=== PATIENT | male | born 1975 | race Caucasian/White ===

== ENCOUNTER → 2021-05-08 | Outpatient (CLI) | payer BC ==
[2021-05-08 08:13] LABS: African American GFR (CKD) >90 (>60 ml/min/1.73 sqM); Blood Urea Nitrogen 21 mg/dL (9-20); Non-African American GFR(CKD) >90 (>60 ml/min/1.73 sqM)
--- NOTE | 2021-05-08 09:42 | CT ---
EXAMINATION TYPE: CT pelvis w con DATE OF EXAM: 05/08/2021 COMPARISON: HISTORY: bilateral pelvic pain CT DLP: 1347.8 mGycm Automated exposure control for dose reduction was used. CONTRAST: CT scan of the abdomen pelvis is performed with IV Contrast, patient injected with 100 mL of Isovue 3 00. FINDINGS-gallstone incidentally noted. No free fluid or adenopathy within the pelvis. Mild hypertroph ic and degenerative change of the spine. Bowel gas pattern nonspecific. Prostate mildly prominent. Pa rtial malrotation congenital right kidney. Visualized portions of the pancreas, spleen, liver, and ki dneys demonstrate no acute abnormality. Aorta of normal caliber with mild atherosclerotic changes. IMPRESSION- 1. No acute process. 2. Cholelithiasis. 3. Correlate for prostate hypertrophy.
== END | disposition home or self-care (01) ==
LOC: RADCTMAIN 07:30
PROVIDERS: ATTEND Surgery
DX: K80.20 Calculus of gallbladder without cholecystitis without obstruction (principal); K40.91 Unilateral inguinal hernia, without obstruction or gangrene, recurrent
CPT/HCPCS: 82565; 84520; 72193; 36415; Q9967

== ENCOUNTER 2021-05-26 07:47 | Day surgery (SDC) | payer BC ==
[2021-05-22 11:30] VITALS: BMI 31.1
[~2021-05-26 07:47] MED LIST: ACETAMINOPHEN TAB 500 MG TAB PO PRN; DEXAMETHASONE SOD PHOSPHATE 4 MG/ML 1 ML VIAL IV ONE; HEPARIN SODIUM,PORCINE/PF 5,000 UNIT/0.5 ML SYRINGE SQ PRN; HYDROmorphone 0.5 MG/0.5 ML SYRINGE IVP PRN; LACTATED RINGERS 1,000 ML IV SCH; MIDAZOLAM 2 MG/2 ML VIAL IV PRN; ONDANSETRON 4 MG/2 ML VIAL IVP ONE; SCOPOLAMINE 1.5MG/72HR PATCH TRANSDERM ONE
[2021-05-26 08:32] LABS: Glucose,Whole Blood 238 mg/dL (75-99)
[2021-05-26] MEDS ORDERED: INSULIN ASPART (NovoLOG) 100 UNIT/ML VIAL SQ ONE (08:39)
--- NOTE | 2021-05-26 09:24 | P.GSHP ---
History of Present Illness H&P Date: 05/26/21 Chief Complaint: Right upper quadrant pain Is a 45-year-old male who presents today for laparoscopic cholestatic. Patient with recurrent pain. He is found have gallstones. Past Medical History Past Medical History: Diabetes Mellitus, GERD/Reflux, Hyperlipidemia Additional Past Medical History / Comment(s): GALLBLADDER DISORDER, genital warts History of Any Multi-Drug Resistant Organisms: None Reported Past Surgical History: Hernia Repair, Orthopedic Surgery Additional Past Surgical History / Comment(s): LT shoulder surg., teeth removed, COLONOSCOPY Past Anesthesia/Blood Transfusion Reactions: No Reported Reaction Smoking Status: Former smoker - Past Family History Mother Family Medical History: Cancer Father Family Medical History: Cancer Medications and Allergies Home Medications Medication Instructions Recorded Confirmed Type Simvastatin [Zocor] 40 mg PO HS 09/09/17 05/22/21 History Pioglitazone [Actos] 30 mg PO HS 05/22/21 05/22/21 History glipiZIDE [Glucotrol] 5 mg PO AC-BID 05/22/21 05/22/21 History Allergies Allergy/AdvReac Type Severity Reaction Status Date / Time Penicillins Allergy Rash/Hives Verified 05/26/21 08:33 sulfamethoxazole Allergy Itching Verified 05/26/21 08:33 [From Bactrim] trimethoprim [From Bactrim] Allergy Itching Verified 05/26/21 08:33 lactose AdvReac GI upset Verified 05/26/21 08:33 Surgical - Exam Vital Signs Temp Pulse Resp BP Pulse Ox 97.7 F 98 14 164/91 98 05/26/21 08:13 05/26/21 08:13 05/26/21 08:13 05/26/21 08:13 05/26/21 08:13 - General well developed, well nourished, no distress - Eyes PERRL - ENT normal pinna - Neck no masses - Respiratory normal expansion - Cardiovascular Rhythm: regular - Abdomen Abdomen: soft, non tender Results - Labs Abnormal Lab Results - Last 24 Hours (Table) 05/26/21 Range/Units 08:30 POC Glucose (mg/dL) 238 H (75-99) mg/dL Assessment and Plan Assessment: Cleft lysis Chronic cholecystitis We'll perform laparoscopic cholecystectomy
[2021-05-26] MEDS ORDERED: ROCURONIUM 10 MG/ML (5 ML VIAL) IV ONE (09:41)
[2021-05-26] MEDS ORDERED: PROPOFOL 10 MG/ML 20 ML VIAL IV ONE (09:41)
[2021-05-26] MEDS ORDERED: LIDOCAINE 1% INJ 10MG/ML (20 ML MDV) ONE (09:41)
[2021-05-26] MEDS ORDERED: KETOROLAC 15 MG/ML 1 ML VIAL ONE (09:41)
[2021-05-26] MEDS ORDERED: NEOSTIGMINE 1 MG/ML 10 ML VIAL ONE (09:41)
[2021-05-26] MEDS ORDERED: GLYCOPYRROLATE 0.2 MG/ML 2 ML VIAL ONE (09:41)
[2021-05-26] MEDS ORDERED: HYDROmorphone (PF) 1 MG/ML ONE (09:41)
[2021-05-26] MEDS ORDERED: MIDAZOLAM 2 MG/2 ML VIAL ONE (09:41)
[2021-05-26] MEDS ORDERED: fentaNYL (PF) 50 MCG/ML 2 ML AMP ONE (09:41)
[2021-05-26] MEDS ORDERED: SUCCINYLCHOLINE CHLORIDE 100 MG/5 ML SYR IV ONE (09:41)
[2021-05-26] MEDS ORDERED: BUPIVACAINE (PF) 0.25% 30 ML VIAL SQ ONE (10:00)
--- NOTE | 2021-05-26 10:25 | P.OP ---
Date of Procedure: 05/26/21 Preoperative Diagnosis: C cholecystitis Postoperative Diagnosis: cholecystitis Procedure(s) Performed: laparoscopic cholecystectomy Anesthesia: DOROTHY Surgeon: Surya Wright Estimated Blood Loss (ml): 5 Pathology: other (gallbladder) Condition: stable Disposition: PACU Description of Procedure: The patient was placed on the operating table. The patient received a general endotracheal tube anesthesia. The patients abdomen was prepped and draped in the usual sterile fashion. Through an infraumbilical stab incision, the fascia of the anterior abdominal wall was grasped with a pair of Kochers and then the Veress needle was placed in the peritoneal cavity. Position of the Veress needle was confirmed with positive drop test. The abdomen was then insufflated. After adequate insufflation, the 10 mm trocar was placed in the peritoneal cavity. Following this the laparoscope was placed in the peritoneal cavity. The patient was placed in the head-up, right side up position and then a 5 mm trocar was placed in the right lateral and right subcostal posi tion under direct visualization. A 8 mm trocar was placed in the epigastric position. The gallbladder was grasped in the fundus and infundibulum. Traction on the gallbladder was placed in the lateral and the cephalad positions. The triangle of Calot was visualized.. The cystic duct was bluntly dissected until the union of the cystic duct and common bile duct was seen. A critical view of safety was achieved. The cystic duct was then divided and sealed with the Harmonic scissors. A PDS Endoloop was then placed throughout the cystic duct stump. The cystic artery divided and sealed with the Harmonic scissors. The gallbladder was then removed from the liver bed using Harmonic scissors. The gallbladder was then extracted through the epigastric port site. Operative field was checked for any bleeding spots and Harmonic scissors was used to coagulate the liver bed. The abdomen was irrigated. The trocars were removed. The skin was closed using interrupted 3-0 Vicryl suture. Dermabond dressing were applied. The patient tolerated the procedure well.
[2021-05-26 10:28] VITALS: RESP 16; TEMP 96.9
[2021-05-26 10:47] LABS: Glucose,Whole Blood 197 mg/dL (75-99)
[2021-05-26 12:10] VITALS: BP 135/79; PULSE 93
== END 2021-05-26 12:25 | disposition home or self-care (01) ==
LOC: OR 07:47
PROVIDERS: ATTEND Surgery
DX: K81.1 Chronic cholecystitis (principal); E11.9 Type 2 diabetes mellitus without complications; E78.5 Hyperlipidemia, unspecified; Z87.891 Personal history of nicotine dependence; Z79.899 Other long term (current) drug therapy; Z88.0 Allergy status to penicillin; Z88.2 Allergy status to sulfonamides; J44.9 Chronic obstructive pulmonary disease, unspecified; K21.9 Gastro-esophageal reflux disease without esophagitis
CPT/HCPCS: 88304; 47562; J2250; J2710; J0690; J2405; J2001; J3010; J1170; J1885; J0330; J2704; J1644

== ENCOUNTER 2023-12-02 11:35 | Emergency (ER) | payer BC ==
--- NOTE | 2023-12-02 12:12 | ED ---
General Adult HPI - General Source: patient, RN notes reviewed Mode of arrival: ambulatory Limitations: no limitations <Roderick Brannon - Last Filed: 12/02/23 12:10> <Sidney Samano - Last Filed: 12/02/23 15:09> - General Stated complaint: dizziness Time Seen by Provider: 12/02/23 12:10 - History of Present Illness Initial comments: 48-year-old emergency department chief complaint of dizziness. Patient states that his dizziness worsened as he got up and states he started vomiting. He denies any chest pain or shortness of breath he states he never had any like this in the past. (Roderick Brannon) Dictation was produced using [employer] dictation software. please excuse any grammatical, word or spelling errors. Chief Complaint: 48-year-old male presents with dizziness History of Present Illness: 48-year-old male presents to the emergency department acute dizziness. Patient states that he had symptoms in the middle of the night. States that he woke up with some dizziness. He went back to bed and woke up feeling fine. He woke up again later after several hours and had some dizziness. He went back to sleep and his symptoms again resolved. States that he woke up for third time start to feel dizzy again. Denies sensation of the room spinning. States that he has no pain. Denies any ear symptoms. Denies any history of vertigo. No numbness ting paresthesias to the arms or legs. Patient has a congested nose however has no other symptoms. The ROS documented in this emergency department record has been reviewed and confirmed by me. Those systems with pertinent positive or negative responses have been documented in the HPI. All other systems are other negative and/or noncontributory. (Sidney Samano) - Related Data Home Medications Medication Instructions Recorded Confirmed Simvastatin [Zocor] 40 mg PO HS 09/09/17 05/22/21 Pioglitazone [Actos] 30 mg PO HS 05/22/21 05/22/21 glipiZIDE [Glucotrol] 5 mg PO AC-BID 05/22/21 05/22/21 Previous Rx's Medication Instructions Recorded Acetaminophen Tab [Tylenol] 650 mg PO Q6H #30 tab 05/26/21 Docusate [Colace] 100 mg PO BID #20 capsule 05/26/21 Ibuprofen [Motrin] 600 mg PO Q6HR PRN #40 tab 05/26/21 oxyCODONE HCL [OxyIR] 5 mg PO Q6H PRN 3 Days #10 tab 05/26/21 Meclizine [Antivert] 25 mg PO TID PRN #15 tab 12/02/23 Allergies Allergy/AdvReac Type Severity Reaction Status Date / Time Penicillins Allergy Rash/Hives Verified 05/26/21 08:33 sulfamethoxazole Allergy Itching Verified 05/26/21 08:33 [From Bactrim] trimethoprim [From Bactrim] Allergy Itching Verified 05/26/21 08:33 lactose AdvReac GI upset Verified 05/26/21 08:33 Review of Systems ROS Other: All systems not noted in ROS Statement are negative. <Roderick Brannon - Last Filed: 12/02/23 12:10> ROS Other: All systems not noted in ROS Statement are negative. <Sidney Samano - Last Filed: 12/02/23 15:09> ROS Statement: Those systems with pertinent positive or pertinent negative responses have been documented in the HPI. Past Medical History Past Medical History: Diabetes Mellitus, GERD/Reflux, Hyperlipidemia Additional Past Medical History / Comment(s): GALLBLADDER DISORDER, genital warts History of Any Multi-Drug Resistant Organisms: None Reported Past Surgical History: Hernia Repair, Orthopedic Surgery Additional Past Surgical History / Comment(s): LT shoulder surg., teeth removed, COLONOSCOPY Past Anesthesia/Blood Transfusion Reactions: No Reported Reaction Smoking Status: Former smoker - Past Family History Mother Family Medical History: Cancer Father Family Medical History: Cancer <Roderick Brannon - Last Filed: 12/02/23 12:10> General Exam <Roderick Brannon - Last Filed: 12/02/23 12:10> <Sidney Samano - Last Filed: 12/02/23 15:09> - General Exam Comments Initial Comments: Visual Physical Exam Vital signs reviewed General: Well-appearing, nontoxic, no acute distress. Head: Normocephalic, atraumatic Eyes: PERRLA, EOMI ENT: Airway patent Chest: Nonlabored breathing Skin: No visual rash, normal skin tone Neuro: Alert and oriented 3 Musculoskeletal: No gross abnormalities (Roderick Brannon) PHYSICAL EXAM: General Impression: Alert and oriented x3, not in acute distress HEENT: Normocephalic atraumatic, extra-ocular movements intact, pupils equal and reactive to light bilaterally, mucous membranes moist. Cardiovascular: Heart regular rate and rhythm Chest: Able to complete full sentences, no retractions, no tachypnea Abdomen: abdomen soft, non-tender, non-distended, no organomegaly Musculoskeletal: Pulses present and equal in all extremities, no peripheral edema Motor: no focal deficits noted Neurological: CN II-XII grossly intact, no focal motor or sensory deficits noted, no nystagmus Skin: Intact with no visualized rashes Psych: Normal affect and mood (Sidney Samano) Course <Sidney Samano - Last Filed: 12/02/23 15:09> Vital Signs 12/02/23 12/02/23 12:06 14:11 Temperature 98.1 F Pulse Rate 97 Pulse Rate [ 90 Left Pulse Oximetery] Respiratory 18 Rate Blood Pressure 157/94 Blood Pressure 157/90 [Left Arm Sitting] Blood Pressure 148/99 [Left Arm Standing] Blood Pressure 151/85 [Left Arm Supine] O2 Sat by Pulse 96 Oximetry - Reevaluation(s) Reevaluation #1: 12/02/23 14:47 Patient reevaluated bedside states that he feels minimal improvement with the Zofran. Clinical presentation concerning for BPPV given that patient has motion induced dizziness. Patient given vertigo medications. (Sidney Samano) EKG Findings - EKG Comments: EKG Findings:: My EKG interpretation: Ventricular rate 99, sinus rhythm, AR interval 182, cures 82, QTc 389. No AR prolongation, no QTC prolongation, no ST or T-wave changes noted. . Overall, this EKG is unremarkable <Sidney Samano - Last Filed: 12/02/23 15:09> Medical Decision Making <Roderick Brannon - Last Filed: 12/02/23 12:10> - Lab Data Result diagrams: 12/02/23 12:13 12/02/23 12:13 <Sidney Samano - Last Filed: 12/02/23 15:09> - Medical Decision Making I completed the quick note portion of this chart signed Roderick Brannon PA-C (Roderick Brannon) Was pt. sent in by a medical professional or institution (, PA, MARKETING STRATEGY MANAGER, urgent care, hospital, or assisted...) When possible be specific @ -No Did you speak to anyone other than the patient for history (EMS, parent, family, police, friend...)? What history was obtained from this source @ -No Did you review nursing and triage notes (agree or disagree)? Why? @ -I reviewed and agree with nursing and triage notes Were old charts reviewed (outside hosp., previous admission, EMS record, old EKG, old radiological studies, urgent care reports/EKG's, assisted records)? Report findings @ -No old charts were reviewed Differential Diagnosis (chest pain, altered mental status, abdominal pain women, abdominal pain men, vaginal bleeding, musculoskeletal, weakness, fever, dyspnea, syncope, headache, dizziness, GI bleed, back pain, seizure, CVA, palpatations, m ental health)? @ -Differential Dizziness: Benign paroxysmal positional Vertigo, Menieres disease, otitis media, acoustic neuroma, vertebrobasilar insufficiency, cerebellar stroke, encephalitis, hyp ovolemic, arrhythmia, coronary artery syndrome, anemia, this is not meant to be an all-inclusive list EKG interpreted by me (3pts min.). @ -See above X-rays interpreted by me (1pt min.). @ -None done CT interpreted by me (1pt min.). @ -None done U/S interpreted by me (1pt. min.). @ -None done What testing was considered but not performed or refused? (CT, X-rays, U/S, labs)? Why? @ -None What meds were considered but not given or refused? Why? @ -None Did you discuss the management of the patient with other professionals (professionals i.e. , [employer], MARKETING STRATEGY MANAGER, lab, RT, psych nurse, child protective services social worker, light truck driver, teacher, air defense control officer, case managers)? Give summary @ -No Was smoking cessation discussed for >3mins.? @ -No Was critical care preformed (if so, how long)? @ -No Were there social determinants of health that impacted care today? How? (Homelessness, low income, unemployed, alcoholism, drug addiction, transportation, low edu. Level, literacy, decrease access to med. care, halfway, rehab)? @ -No Was there de-escalation of care discussed even if they declined (Discuss DNR or withdrawal of care, Hospice)? DNR status @ -No What co-morbidities impacted this encounter? (DM, HTN, Smoking, COPD, CAD, Cancer, CVA, ARF, Chemo, Hep., AIDS, mental health diagnosis, sleep apnea, morbid obesity)? @ -None Was patient admitted / discharged? Hospital course, mention meds given and route, prescriptions, significant lab abnormalities, going to OR and other pertinent info. @ -48-year-old male presents with positional dizziness. Vital signs stable. Patient does not have any nystagmus. He has no high risk features. Laboratory evaluation is unremarkable. EKG is unremarkable. Patient treated with Zofran, Reglan and Antivert and IV fluids. Patient stable for discharge. He has no high risk features. Undiagnosed new problem with uncertain prognosis? @ -No Drug Therapy requiring intensive monitoring for toxicity (Heparin, Nitro, Insulin, Cardizem)? @ -No Were any procedures done? @ -No Diagnosis/symptom? Acute, or Chronic, or Acute on Chronic? Uncomplicated (without systemic symptoms) or Complicated (systemic symptoms)? @ -Dizziness Side effects of treatment? @ -No Exacerbation, Progression, or Severe Exacerbation? @ -No Poses a threat to life or bodily function? How? (Chest pain, [place], [place], pneumonia, PE, COPD, DKA, ARF, appy, cholecystitis, CVA, Diverticulitis, Homicidal, Suicidal, threat to staff... and all critical care pts) @ -No (Sidney Samano) - Lab Data Lab Results 12/02/23 12/02/23 12/02/23 Range/Units 12:13 12:13 12:13 WBC 8.3 (3.8-10.6) k/uL RBC 5.03 (4.30-5.90) m/uL Hgb 15.0 (13.0-17.5) gm/dL Hct 43.6 (39.0-53.0) % MCV 86.7 (80.0-100.0) fL MCH 29.9 (25.0-35.0) pg MCHC 34.5 (31.0-37.0) g/dL RDW 12.7 (11.5-15.5) % Plt Count 189 (150-450) k/uL MPV 8.2 Neutrophils % 72 % Lymphocytes % 20 % Monocytes % 6 % Eosinophils % 1 % Basophils % 0 % Neutrophils # 6.0 (1.3-7.7) k/uL Lymphocytes # 1.6 (1.0-4.8) k/uL Monocytes # 0.5 (0-1.0) k/uL Eosinophils # 0.1 (0-0.7) k/uL Basophils # 0.0 (0-0.2) k/uL Sodium 138 (137-145) mmol/L Potassium 4.1 (3.5-5.1) mmol/L Chloride 105 (98-107) mmol/L Carbon Dioxide 23 (22-30) mmol/L Anion Gap 10 mmol/L BUN 15 (9-20) mg/dL Creatinine 0.51 L (0.66-1.25) mg/dL Est GFR (CKD-EPI)AfAm >90 (>60 ml/min/1.73 sqM) Est GFR (CKD-EPI)NonAf >90 (>60 ml/min/1.73 sqM) Glucose 184 H (74-99) mg/dL Calcium 10.2 (8.4-10.2) mg/dL Magnesium 1.8 (1.6-2.3) mg/dL Total Bilirubin 1.1 (0.2-1.3) mg/dL AST 31 (17-59) U/L ALT 48 (4-49) U/L Alkaline Phosphatase 93 (38-126) U/L Troponin I <0.012 (0.000-0.034) ng/mL Total Protein 8.1 (6.3-8.2) g/dL Albumin 4.8 (3.5-5.0) g/dL Influenza Type A (PCR) (Not Detectd) Influenza Type B (PCR) (Not Detectd) RSV (PCR) (Not Detectd) SARS-CoV-2 (PCR) (Not Detectd) 12/02/23 Range/Units 13:57 WBC (3.8-10.6) k/uL RBC (4.30-5.90) m/uL Hgb (13.0-17.5) gm/dL Hct (39.0-53.0) % MCV (80.0-100.0) fL MCH (25.0-35.0) pg MCHC (31.0-37.0) g/dL RDW (11.5-15.5) % Plt Count (150-450) k/uL MPV Neutrophils % % Lymphocytes % % Monocytes % % Eosinophils % % Basophils % % Neutrophils # (1.3-7.7) k/uL Lymphocytes # (1.0-4.8) k/uL Monocytes # (0-1.0) k/uL Eosinophils # (0-0.7) k/uL Basophils # (0-0.2) k/uL Sodium (137-145) mmol/L Potassium (3.5-5.1) mmol/L Chloride (98-107) mmol/L Carbon Dioxide (22-30) mmol/L Anion Gap mmol/L BUN (9-20) mg/dL Creatinine (0.66-1.25) mg/dL Est GFR (CKD-EPI)AfAm (>60 ml/min/1.73 sqM) Est GFR (CKD-EPI)NonAf (>60 ml/min/1.73 sqM) Glucose (74-99) mg/dL Calcium (8.4-10.2) mg/dL Magnesium (1.6-2.3) mg/dL Total Bilirubin (0.2-1.3) mg/dL AST (17-59) U/L ALT (4-49) U/L Alkaline Phosphatase (38-126) U/L Troponin I (0.000-0.034) ng/mL Total Protein (6.3-8.2) g/dL Albumin (3.5-5.0) g/dL Influenza Type A (PCR) Not Detected (Not Detectd) Influenza Type B (PCR) Not Detected (Not Detectd) RSV (PCR) Not Detected (Not Detectd) SARS-CoV-2 (PCR) Not Detected (Not Detectd) Disposition <Roderick Brannon - Last Filed: 12/02/23 12:10> Is patient prescribed a controlled substance at d/c from ED?: No Time of Disposition: 14:50 <Sidney Samano - Last Filed: 12/02/23 15:09> Clinical Impression: Dizziness Disposition: HOME SELF-CARE Instructions (If sedation given, give patient instructions): Dizziness (ED) Prescriptions: Meclizine [Antivert] 25 mg PO TID PRN #15 tab PRN Reason: dizziness Referrals: Jack Greenfield DO [Primary Care Provider] - 1-2 days
[2023-12-02 12:14] VITALS: RESP 18; TEMP 98.1
[2023-12-02 12:33] LABS: Basophils % (A) 0 %; Eosinophils # (A) 0.1 k/uL (0-0.7); Eosinophils % (A) 1 %; HCT 43.6 % (39.0-53.0); Lymphocytes # (A) 1.6 k/uL (1.0-4.8); Lymphocytes % (A) 20 %; MCH 29.9 pg (25.0-35.0); MCHC 34.5 g/dL (31.0-37.0); MCV 86.7 fL (80.0-100.0); Mean Platelet Volume 8.2; Monocytes # (A) 0.5 k/uL (0-1.0); Monocytes % (A) 6 %; Neutrophils % (A) 72 %; Platelet Count 189 k/uL (150-450); RBC 5.03 m/uL (4.30-5.90); RDW 12.7 % (11.5-15.5); WBC 8.3 k/uL (3.8-10.6)
[2023-12-02 12:45] LABS: ALT 48 U/L (4-49); AST 31 U/L (17-59); African American GFR (CKD) >90 (>60 ml/min/1.73 sqM); Albumin 4.8 g/dL (3.5-5.0); Alkaline Phosphatase 93 U/L (38-126); Anion Gap 10 mmol/L; Blood Urea Nitrogen 15 mg/dL (9-20); Calcium 10.2 mg/dL (8.4-10.2); Carbon Dioxide 23 mmol/L (22-30); Chloride 105 mmol/L (98-107); Glucose 184 mg/dL (74-99); Magnesium 1.8 mg/dL (1.6-2.3); Non-African American GFR(CKD) >90 (>60 ml/min/1.73 sqM); Potassium 4.1 mmol/L (3.5-5.1); Sodium 138 mmol/L (137-145); Total Bilirubin 1.1 mg/dL (0.2-1.3); Total Protein 8.1 g/dL (6.3-8.2)
[2023-12-02] MEDS ORDERED: SODIUM CHLORIDE 0.9% 1,000 ML IV STA (13:46)
[2023-12-02] MEDS ORDERED: ONDANSETRON 4 MG/2 ML VIAL IVP STA (13:46)
[2023-12-02 14:26] VITALS: PULSE 90
[2023-12-02] MEDS ORDERED: METOCLOPRAMIDE 5 MG/ML 2 ML VIAL IVP STA (14:46)
[2023-12-02] MEDS ORDERED: MECLIZINE 12.5 MG TAB PO STA (14:46)
[2023-12-02] MEDS ORDERED: ONDANSETRON 4 MG ODT STARTER PACK 2 TAB BTL PO STA (14:50)
[2023-12-02 15:43] VITALS: BP 134/80
== END 2023-12-02 15:26 | disposition home or self-care (01) ==
LOC: EC 11:35
DX: R42 Dizziness and giddiness (principal); E11.9 Type 2 diabetes mellitus without complications; E78.5 Hyperlipidemia, unspecified; Z20.822 Contact with and (suspected) exposure to COVID-19; Z79.84 Long term (current) use of oral hypoglycemic drugs; Z79.899 Other long term (current) drug therapy; Z88.0 Allergy status to penicillin; Z88.1 Allergy status to other antibiotic agents; Z88.2 Allergy status to sulfonamides; Z91.011 Allergy to milk products; Z87.891 Personal history of nicotine dependence
CPT/HCPCS: 36415; 93005; 80053; 83735; 84484; 85025; 87636; 99284; 96374; 96375; 96361; J2765; J2405; S0119